=== PATIENT | female | born 1995 | race Hispanic/Latino ===

== ENCOUNTER 2024-11-14 19:00 | Emergency (ER) | payer OTHER ==
[~2024-11-14] VITALS: Ht 162.6 cm; Wt 69.9 kg
[2024-11-14 20:35] VITALS: TEMP 98.2
[2024-11-14 21:14] LABS: BASOPHILS % 0.4 % (0.0-1.0); EOSINOPHILS # (AUTO) 0.1 (0.0-0.4); EOSINOPHILS % 0.6 % (0.0-6.0); HEMATOCRIT 37.2 % (34.2-44.1); HEMOGLOBIN 11.1 g/dL (12.0-16.0); LYMPHOCYTES # (AUTO) 2.2 (1.0-3.2); LYMPHOCYTES % 21.5 % (18.0-39.1); MEAN CORPUSCULAR HEMOGLOBIN 26.8 pg (28-32); MEAN CORPUSCULAR HGB CONC 29.8 g/dL (31-35); MEAN CORPUSCULAR VOLUME 89.9 fL (81-99); MONOCYTES # (AUTO) 0.6 (0.2-0.8); MONOCYTES % 6.3 % (4.4-11.3); NEUTROPHILS # (AUTO) 7.1 (2.1-6.9); PLATELET COUNT 305 x10e3/uL (140-360); RED BLOOD COUNT 4.14 x10e6/uL (3.6-5.1); RED CELL DISTRIBUTION WIDTH 14.9 % (11.7-14.4)
[2024-11-14 21:26] LABS: CLARITY,URINE SL CLOUDY (CLEAR); COLOR,URINE YELLOW (YELLOW)
[2024-11-14 21:27] LABS: BILIRUBIN,URINE NEGATIVE (NEGATIVE); GLUCOSE, URINE NEGATIVE (NEGATIVE); KETONES,URINE NEGATIVE (NEGATIVE); LEUKOCYTE ESTERASE ,URINE SMALL (NEGATIVE); NITRITE,URINE NEGATIVE (NEGATIVE); PH,URINE 6 (5 - 7); PROTEIN,URINE DIPSTICK NEGATIVE (NEGATIVE); URINE UROBILINOGEN 0.2 mg/dL (0.2 - 1)
[2024-11-14 21:31] LABS: ANION GAP 16.3 mmol/L (8-16); CALCIUM 9.4 mg/dL (8.4-10.2); CREATININE, SERUM 0.6 mg/dL (0.57-1.11)
[2024-11-14 21:32] LABS: POTASSIUM 3.3 mmol/L (3.5-5.1)
[2024-11-14 21:36] LABS: BACTERIA,URINE FEW /HPF; EPITHELIAL CELLS,URINE MODERATE /LPF; WBC,URINE (MAN) 0-5 /HPF (0-5)
[2024-11-14 22:42] VITALS: PULSE 67; RESP 17
[2024-11-14] MEDS ORDERED: MACROBID 100 M100 MG PO (23:44)
[2024-11-14 23:57] VITALS: BP 122/85; PULSE 67; RESP 20; TEMP 98.7; O2SAT 100
== END 2024-11-14 23:58 | disposition home or self-care (01) ==
LOC: ER 20:46
DX: O20.0 Threatened abortion (principal); O23.41 Unspecified infection of urinary tract in pregnancy, first trimester; N39.0 Urinary tract infection, site not specified; R10.30 Lower abdominal pain, unspecified
CPT/HCPCS: 36415; 76817; 80048; 81001; 84702; 85025; 99283